=== PATIENT | female | born 1980 | race Caucasian/White ===

== ENCOUNTER 2019-10-15 20:08 | Emergency (ER) | payer MEDICAID, OTHER ==
[~2019-10-15] VITALS: Ht 172.7 cm; Wt 136.1 kg
[2019-10-15 21:01] VITALS: BP 119/68
--- NOTE | 2019-10-15 23:10 | NUR ---
PT AMBULATED TO ROOM 6.
--- NOTE | 2019-10-15 23:12 | NUR ---
PT 39 Y/O FEMALE BIB SELF WITH C/O R KNEE PAIN X 2.5 WEEKS. PT STATES,"I SQUATTED TO PICK SOMETHING UP AND I HEARD A POP BUT IT POPPED BACK IN." PT STATES SHE TRIED TO DEAL WITH THE PAIN BUT IT IS HARD FOR HER TO WALK. SWELLING AND SLIGHT BRUSING NOTED AROUND R PATELLA. PT STATES PAIN IS 7/10 UNPROVOKED. PT STATES THE SAME THING HAPPENED TO HER LAST YEAR AND SHE HAD TO GET FLUID REMOVED FROM HER KNEE. PT AFEBRILE. PT DENIES N/V/D AND COUGH. PT RESTING UPRIGHT IN BED. BED IN LOWEST POSITION AND LOCKED IN PLACE. COUSIN AT BEDSIDE. MEDHX: NONE ALLERGIES: NKA
--- NOTE | 2019-10-15 23:50 | NUR ---
Note raymond in ED - 10/16/19 at 0001 by [email or web address] PT EDUCATED ON CRUTCH USE AND VERBALIZES UNDERSTANDING. MARSHAL WRAP PLACED ON R KNEE BY CHASE CHARLES. POSITIVE PULSE S/P PLACEMENT OF WRAP.
--- NOTE | 2019-10-15 23:50 | NUR ---
PT EDUCATED ON CRUTCH USE AND VERBALIZES UNDERSTANDING. MARSHAL WRAP PLACED ON R KNEE BY CHASE CHARLES. POSITIVE PULSE S/P PLACEMENT OF WRAP.
[2019-10-16 00:05] VITALS: BP 119/68
--- NOTE | 2019-10-16 00:05 | NUR ---
Patient discharged with v/s stable. Written and verbal after care instructions given and explained. Patient alert, oriented and verbalized understanding of instructions. Ambulatory with steady gait. All questions addressed prior to discharge. ID band removed. Patient advised to follow up with PMD. Rx of TRAMADOL, MOTRIN given. Patient educated on indication of medication including possible reaction and side effects. Opportunity to ask questions provided and answered.
== END 2019-10-16 00:05 | disposition home or self-care (01) ==
LOC: MED 20:08
DX: M25.561 Pain in right knee (principal)
CPT/HCPCS: 73562; 99283